=== PATIENT | female | born 2000 | race Hispanic/Latino ===

== ENCOUNTER 2021-11-17 22:57 | Emergency (ER) | payer OTHER ==
[2021-11-17] MEDS ORDERED: METHYLPREDNISOLONE 125 MG INJ ONE (23:20)
[2021-11-17] MEDS ORDERED: FAMOTIDINE 20 MG/2 ML VIAL IV ONE (23:20)
[2021-11-18] MEDS ORDERED: ONDANSETRON 4 MG/2 ML VIAL ONE (00:31)
--- NOTE | 2021-11-18 02:24 | ER ---
Nurse's Notes [facility] Name: Yuki Padgett Age: 21 yrs Sex: Female : 2000 Arrival Date: 11/17/2021 Time: 22:59 Bed 4 Private MD: Diagnosis: Acute allergic reaction Presentation: 11/17 23:06 Chief complaint: Patient states: "I got a cavity filled the other day. I think I am tw5 allergic to something in the shots. I started having an allergic reaction about 4 hours ago. I felt Like I couldn't breath. I took a bunch of benadryl. Now I feel like my skin is burning and my throat feels sticky.". Coronavirus screen: Vaccine status: Patient reports receiving the 2nd dose of the covid vaccine. Neventum. Ebola Screen: Patient negative for fever greater than or equal to 101.5 degrees Fahrenheit, and additional compatible Ebola Virus Disease symptoms Patient denies exposure to infectious person. Patient denies travel to an Ebola-affected area in the 21 days before illness onset. Onset: The symptoms/episode began/occurred 4 hour(s) ago. Anaphylaxis evaluation, the patient reports or I have noted the following symptoms which indicate a significant risk of anaphylaxis: lightheadedness lump in the throat which may suggest laryngeal edema tachypnea. Initial Sepsis Screen: Does the patient meet any 2 criteria? No. Patient's initial sepsis screen is negative. Does the patient have a suspected source of infection? No. Patient's initial sepsis screen is negative. Risk Assessment: Do you want to hurt yourself or someone else? Patient reports no desire to harm self or others. Onset of symptoms was November 17, 2021 at 21:00. 23:06 Method Of Arrival: Ambulatory tw5 23:06 Acuity: NAZIA 2 tw5 Triage Assessment: 23:09 General: Appears uncomfortable, Behavior is calm, cooperative, appropriate for age. tw5 Pain: Pain currently is 7 out of 10 on a pain scale. INFORMATION SECURITY: 23:09 LMP N/A - control method tw Historical: - Allergies: 23:09 Iodine; tw5 23:09 Kiwi (Actinidia Chinensis); tw5 23:09 Peanut; tw5 23:09 dairy products; tw5 - Immunization history:: Flu vaccine is not up to date. - Social history:: Smoking status: Reported history of juuling and/or vaping. - Family history:: not pertinent. - Hospitalizations: : No recent hospitalization is reported. Screenin:44 Abuse screen: Denies threats or abuse. Denies injuries from another. Nutritional as6 screening: No deficits noted. Tuberculosis screening: No symptoms or risk factors identified. Fall Risk None identified. Assessment: 23:30 General: Appears in no apparent distress. Behavior is calm, cooperative, anxious. Pain: as6 Complains of pain in abdomen. Neuro: Koroma Agitation-Sedation Scale (RASS): 0 - Alert and Calm Level of Consciousness is awake, alert, obeys commands, Oriented to person, place, time, situation. Cardiovascular: JVD is absent Patient's skin is warm and dry. Respiratory: Reports "my throat feels sticky" Airway is patent Respiratory effort is even, unlabored, Respiratory pattern is regular, symmetrical, Breath sounds are clear. GI: Reports upper abdominal pain. Derm: Reports burning. Vital Signs: 23:06 BP 127 / 84; Pulse 74; Resp 18; Temp 98.6; Pulse Ox 100% on R/A; Height 5 ft. 1 in. tw5 (154.94 cm); Pain 5/10; 23:46 BP 124 / 105; Pulse 98; Resp 18 S; Pulse Ox 100% on R/A; as6 06/18 00:45 BP 113 / 77; Pulse 67; Resp 18 S; Pulse Ox 100% on R/A; as6 03:04 BP 118 / 71; Pulse 86; Resp 18 S; Pulse Ox 99% on R/A; as6 ED Course: 11/17 22:59 Patient arrived in ED. es 23:01 Dave Salazar MD is Attending Physician. rn 23:09 Triage completed. tw5 23:09 Arm band placed on Patient placed in an exam room. tw5 23:13 Byron Stoll, BROCK is Primary Nurse. as6 23:30 Inserted saline lock: 20 gauge in left antecubital area, using aseptic technique. as6 23:44 Bed in low position. Call light in reach. Side rails up X 1. Pulse ox on. NIBP on. as6 11/18 03:05 No provider procedures requiring assistance completed. IV discontinued, intact, as6 bleeding controlled, No redness/swelling at site. Pressure dressing applied. Administered Medications: 11/17 23:28 Drug: SOLU-Medrol (methylPrednisoLONE) 125 mg Route: IVP; Site: left antecubital; as6 11/18 03:04 Follow up: Response: No adverse reaction as6 11/17 23:28 Drug: Pepcid (famotidine) 20 mg Route: IVP; Site: left antecubital; as6 11/18 03:04 Follow up: Response: No adverse reaction as6 00:27 Drug: Zofran (Ondansetron) 4 mg Route: IVP; Site: left antecubital; as6 03:05 Follow up: Response: No adverse reaction as6 02:37 Drug: Phenergan (promethazine) 12.5 mg Route: IVP; Site: left antecubital; as6 03:05 Follow up: Response: No adverse reaction as6 Medication: 11/17 23:44 VIS not applicable for this client. as6 Outcome: 11/18 02:23 Discharge ordered by . rn 03:05 Discharged to home ambulatory. as6 03:05 Condition: stable 03:05 Discharge instructions given to patient, Instructed on discharge instructions, follow up and referral plans. medication usage, Demonstrated understanding of instructions, follow-up care, medications, Prescriptions given X 1. 03:06 Patient left the ED. as6 Signatures: Ree Garcia Roman, MD MD rn Wood, Tiffany tw5 Byron Stoll RN RN as6
--- NOTE | 2021-11-18 02:24 | EDPHYS ---
Physician Documentation [facility] Name: Yuki Padgett Age: 21 yrs Sex: Female : 2000 Arrival Date: 11/17/2021 Time: 22:59 Bed 4 Private MD: ED Physician Dave Salazar HPI: 11/18 00:12 This 21 yrs old Female presents to ER via Ambulatory with complaints of rn Allergic Reaction. 00:12 The patient presents with difficulty swallowing. Onset: The symptoms/episode rn began/occurred yesterday. Associated signs and symptoms: Pertinent positives: dysphagia, Pertinent negatives: fever, hives, Light headed shortness of breath. Possible causes: numbing medication . At home the patient or guardian has treated the symptoms with Benadryl. Severity of symptoms: At their worst the symptoms were moderate in the emergency department the symptoms have improved. The patient has experienced a previous episode. The patient has been recently seen by a physician:. Pt reports allergic reaction to numbing shots at dentist. Reports allergic to numbing shots before, took benadryl with improvement, throat was feeling "sticky", no sob/chest pain/abd pain/vomiting.. DISTRIBUTION LEAD: 11/17 23:09 LMP N/A - control method tw5 Historical: - Allergies: 23:09 Iodine; tw5 23:09 Kiwi (Actinidia Chinensis); tw5 23:09 Peanut; tw5 23:09 dairy products; tw5 - Immunization history:: Flu vaccine is not up to date. - Social history:: Smoking status: Reported history of juuling and/or vaping. - Family history:: not pertinent. - Hospitalizations: : No recent hospitalization is reported. ROS: 11/18 00:12 Constitutional: Negative for fever, chills, and weight loss, Eyes: Negative for injury, rn pain, redness, and discharge, ENT: throat "sticky" Neck: Negative for injury, pain, and swelling, Cardiovascular: Negative for chest pain, palpitations, and edema, Respiratory: Negative for shortness of breath, cough, wheezing, and pleuritic chest pain, Abdomen/GI: Negative for abdominal pain, nausea, vomiting, diarrhea, and constipation, Back: Negative for injury and pain, MS/Extremity: Negative for injury and deformity, Skin: Negative for injury, rash, and discoloration, Neuro: Negative for headache, weakness, numbness, tingling, and seizure. Exam: 00:12 Constitutional: This is a well developed, well nourished patient who is awake, alert, rn and in no acute distress. Head/Face: Normocephalic, atraumatic. Eyes: Periorbital areas with no swelling, redness, or edema. ENT: No stridor, no tongue swelling Cardiovascular: Regular rate and rhythm. No pulse deficits. Respiratory: No increased work of breathing, no retractions or nasal flaring. Skin: Warm, dry with normal turgor. Normal color with no rashes, no lesions, and no evidence of cellulitis. MS/ Extremity: Pulses equal, no cyanosis. Neurovascular intact. Full, normal range of motion. Equal circumference. Neuro: Awake and alert, GCS 15, oriented to person, place, time, and situation. Cranial nerves II-XII grossly intact. Motor strength 5/5 in all extremities. Sensory grossly intact. Cerebellar exam normal. Normal gait. Vital Signs: 11/17 23:06 BP 127 / 84; Pulse 74; Resp 18; Temp 98.6; Pulse Ox 100% on R/A; Height 5 ft. 1 in. tw5 (154.94 cm); Pain 5/10; 23:46 BP 124 / 105; Pulse 98; Resp 18 S; Pulse Ox 100% on R/A; as6 11/18 00:45 BP 113 / 77; Pulse 67; Resp 18 S; Pulse Ox 100% on R/A; as6 03:04 BP 118 / 71; Pulse 86; Resp 18 S; Pulse Ox 99% on R/A; as6 MDM: 11/17 23:01 Patient medically screened. rn 11/18 02:22 Differential diagnosis: anaphylaxis, acute allergic reaction, hyperventilation. Data rn reviewed: vital signs, nurses notes, and as a result, I will discharge patient. Counseling: I had a detailed discussion with the patient and/or guardian regarding: the historical points, exam findings, and any diagnostic results supporting the discharge/admit diagnosis, the need for outpatient follow up, to return to the emergency department if symptoms worsen or persist or if there are any questions or concerns that arise at home. Response to treatment: the patient's symptoms have markedly improved after treatment, and as a result, I will discharge patient. Special discussion: I discussed with the patient/guardian in detail that at this point there is no indication for admission to the hospital. It is understood, however, that if the symptoms persist or worsen the patient needs to return immediately for re-evaluation. ED course: Pt feels back to baseline, still feeling a little nauseated but throat sensation gone, no rash, no sob. . 11/17 23:11 Order name: IV Start; Complete Time: 23:28 rn Administered Medications: 11/17 23:28 Drug: SOLU-Medrol (methylPrednisoLONE) 125 mg Route: IVP; Site: left antecubital; as6 11/18 03:04 Follow up: Response: No adverse reaction as6 11/17 23:28 Drug: Pepcid (famotidine) 20 mg Route: IVP; Site: left antecubital; as6 11/18 03:04 Follow up: Response: No adverse reaction as6 00:27 Drug: Zofran (Ondansetron) 4 mg Route: IVP; Site: left antecubital; as6 03:05 Follow up: Response: No adverse reaction as6 02:37 Drug: Phenergan (promethazine) 12.5 mg Route: IVP; Site: left antecubital; as6 03:05 Follow up: Response: No adverse reaction as6 Disposition Summary: 11/18/21 02:23 Discharge Ordered Location: Home rn Problem: new rn Symptoms: have improved rn Condition: Stable rn Diagnosis - Acute allergic reaction rn Followup: rn - With: Private Physician - When: As needed - Reason: Recheck today's complaints, Re-evaluation by your physician Discharge Instructions: - Discharge Summary Sheet rn - Drug Allergy rn Forms: - Medication Reconciliation Form rn - Thank You Letter rn - Antibiotic rn spine - Prescription Opioid Use rn Prescriptions: - Prednisone 20 mg Oral Tablet - take 3 tablets by ORAL route once daily for 5 days; 15 tablet; Refills: 0, rn Product Selection Permitted Signatures: Dave Salazar MD MD rn Wood, Tiffany tw5 Byron Stoll RN RN as6
[2021-11-18] MEDS ORDERED: PROMETHAZINE INJ 25 MG/ML AMP ONE (02:40)
[2021-11-18 03:11] VITALS: TEMP 98.6
[2021-11-18 03:16] VITALS: BP 118/71; O2SAT 99
== END 2021-11-18 03:06 | disposition home or self-care (01) ==
LOC: ER 22:57
DX: R13.10 Dysphagia, unspecified (principal); T41.3X5A Adverse effect of local anesthetics, initial encounter; Y92.531 Health care provider office as the place of occurrence of the external cause; Z91.09 Other allergy status, other than to drugs and biological substances; Z91.010 Allergy to peanuts; Z91.011 Allergy to milk products; Z91.018 Allergy to other foods; F17.290 Nicotine dependence, other tobacco product, uncomplicated
CPT/HCPCS: 96375; 96374; 99284; J2550; J2930; J2405; J3490